=== PATIENT | female | born 1935 | race Caucasian/White ===

== ENCOUNTER 2018-04-06 19:55 | Emergency (ER) | payer OTHER ==
[~2018-04-06] VITALS: Ht 162.6 cm; Wt 76.7 kg
[~2018-04-06 19:55] MED LIST: AMARYL2 MG PO; ECOTRIN325 MG PO; LIPITOR80 MG PO; METFORMIN HCL1000 MG PO; METOPROLOL TART50 MG PO; ZESTRIL20 MG PO
[2018-04-06] MEDS ORDERED: INSULIN REGULAR, HUMAN 100 UNIT/1 ML 3ML VIAL SQ ONE (20:15)
[2018-04-06] MEDS ORDERED: SODIUM CHLORIDE 0.9% 1000ML 1,000 ML IV ONE (20:15)
[2018-04-06 20:37] LABS: BASOPHILS # (AUTO) 0.1 (0.0-0.1); BASOPHILS % 0.4 % (0.0-1.0); EOSINOPHILS # (AUTO) 0.2 (0.0-0.4); EOSINOPHILS % 1.4 % (0.0-6.0); HEMATOCRIT 34.6 % (34.2-44.1); HEMOGLOBIN 12.3 g/dL (12.0-16.0); LYMPHOCYTES # (AUTO) 2.1 (1.0-3.2); LYMPHOCYTES % 14.3 % (18.0-39.1); MEAN CORPUSCULAR HEMOGLOBIN 30.7 pg (28-32); MEAN CORPUSCULAR HGB CONC 35.5 g/dL (31-35); MEAN CORPUSCULAR VOLUME 86.3 fL (81-99); MONOCYTES # (AUTO) 0.8 (0.2-0.8); MONOCYTES % 5.1 % (4.4-11.3); NEUTROPHILS # (AUTO) 11.5 (2.1-6.9); NEUTROPHILS % 78.5 % (38.7-80.0); PLATELET COUNT 295 x10e3/uL (140-360); RED BLOOD COUNT 4.01 x10e6/uL (3.6-5.1)
[2018-04-06 20:57] LABS: ALBUMIN/GLOBULIN RATIO 1.1 (0.8-2.0); ANION GAP 20.3 mmol/L (8-16); CALCIUM 9.6 mg/dL (8.4-10.2); CREATININE, SERUM 1.89 mg/dL (0.57-1.11); POTASSIUM 4.3 mmol/L (3.5-5.1)
[2018-04-06 21:05] LABS: CREATINE KINASE MB 1.4 ng/mL (0-5.0)
[2018-04-06] MEDS ORDERED: GLIMEPIRIDE4 MG PO (21:34)
[2018-04-06] MEDS ORDERED: ATORVASTATIN CA80 MG PO (21:34)
[2018-04-06] MEDS ORDERED: FENOFIBRATE160 MG PO (21:34)
[2018-04-06] MEDS ORDERED: LISINOPRIL20 MG PO (21:34)
--- NOTE | 2018-04-06 22:01 | Diagnostic Imaging Report ---
EXAMINATION: CHEST SINGLE (PORTABLE) INDICATION: Lightheaded COMPARISON: None FINDINGS: TUBES and LINES: None. LUNGS: Lungs are well inflated. Left upper lobe partially calcified nodule measuring 1.2 cm in diameter. There is no evidence of pneumonia or pulmonary edema. PLEURA: No pleural effusion or pneumothorax. HEART AND MEDIASTINUM: The cardiomediastinal silhouette is unremarkable. There are atherosclerotic calcifications within the aorta. BONES AND SOFT TISSUES: No acute osseous lesion. Soft tissues are unremarkable. UPPER ABDOMEN: No free air under the diaphragm. IMPRESSION: No acute thoracic abnormality. Signed by: Dr. Naresh Medellin M.D. on 04/06/2018 9:57 PM
[2018-04-06 23:47] LABS: BILIRUBIN,URINE NEGATIVE (NEGATIVE); CLARITY,URINE HAZY (CLEAR); COLOR,URINE YELLOW (YELLOW); KETONES,URINE NEGATIVE (NEGATIVE); LEUKOCYTE ESTERASE ,URINE 1+ (NEGATIVE); NITRITE,URINE NEGATIVE (NEGATIVE); PROTEIN,URINE DIPSTICK NEGATIVE (NEGATIVE); URINE UROBILINOGEN 0.2 mg/dL (0.2 - 1)
[2018-04-06 23:56] LABS: BACTERIA,URINE MODERATE /HPF; EPITHELIAL CELLS,URINE RARE /LPF
[2018-04-06 23:57] LABS: WBC,URINE (MAN) 21-50 /HPF (0-5)
[2018-04-07] MEDS ORDERED: CEFTRIAXONE SOD 1 GM VIAL IV ONE (00:15)
== END 2018-04-07 01:40 | disposition home or self-care (01) ==
LOC: ER 19:55
DX: R42 Dizziness and giddiness (principal); R53.1 Weakness; N30.90 Cystitis, unspecified without hematuria; I10 Essential (primary) hypertension; E11.9 Type 2 diabetes mellitus without complications; E78.00 Pure hypercholesterolemia, unspecified
CPT/HCPCS: 36415; 71045; 80053; 81001; 82550; 82553; 82948; 84484; 85025; 87086; 87186; 93005; 99284; J0696; J7030

== ENCOUNTER 2021-08-07 14:59 | Inpatient (IN) | payer OTHER ==
[~2021-08-07] VITALS: Ht 160 cm; Wt 61.7 kg
[~2021-08-07 14:59] MED LIST changes: +ATORVASTATIN CA80 MG PO; +FENOFIBRATE160 MG PO; +GLIMEPIRIDE4 MG PO; +LISINOPRIL20 MG PO
[2021-08-07] MEDS ORDERED: SODIUM CHLORIDE 0.9% 1000ML 1,000 ML IV STA (17:02)
[2021-08-07 17:26] LABS: BASOPHILS # (AUTO) 0.1 (0.0-0.1); BASOPHILS % 0.5 % (0.0-1.0); EOSINOPHILS # (AUTO) 0.1 (0.0-0.4); EOSINOPHILS % 0.8 % (0.0-6.0); HEMATOCRIT 29.7 % (34.2-44.1); HEMOGLOBIN 9.4 g/dL (12.0-16.0); LYMPHOCYTES # (AUTO) 1.9 (1.0-3.2); LYMPHOCYTES % 13.3 % (18.0-39.1); MEAN CORPUSCULAR HEMOGLOBIN 29.6 pg (28-32); MEAN CORPUSCULAR HGB CONC 31.6 g/dL (31-35); MEAN CORPUSCULAR VOLUME 93.4 fL (81-99); MONOCYTES # (AUTO) 0.6 (0.2-0.8); MONOCYTES % 4.5 % (4.4-11.3); NEUTROPHILS # (AUTO) 11.5 (2.1-6.9); NEUTROPHILS % 80.4 % (38.7-80.0); PLATELET COUNT 421 x10e3/uL (140-360); RED BLOOD COUNT 3.18 x10e6/uL (3.6-5.1); RED CELL DISTRIBUTION WIDTH 14.2 % (11.7-14.4)
[2021-08-07 17:38] LABS: ALBUMIN 2.6 g/dL (3.5-5.0); ALBUMIN/GLOBULIN RATIO 0.6 (0.8-2.0); ANION GAP 17.3 mmol/L (8-16); CALCIUM 8.7 mg/dL (8.4-10.2); CREATININE, SERUM 0.77 mg/dL (0.57-1.11); POTASSIUM 4.3 mmol/L (3.5-5.1)
[2021-08-07] MEDS: PIPERACILLIN/TAZOBACTAM 3.375 GM in SODIUM CHLORIDE 0.9% 50ML 50 ML IV SCH (17:41)
[2021-08-07] MEDS: ONDANSETRON HCL INJ 2MG/ML 2ML 2 MG/ML VIAL IV PRN (18:24)
[2021-08-07] MEDS: Morphine 4mg Syringe 4 MG/ML INJ IV PRN (18:24)
[2021-08-07 19:24] VITALS: BP 153/57
[2021-08-07 20:00] VITALS: BP 153/57
[2021-08-07 21:00] VITALS: BP 153/57
[2021-08-07] MEDS ORDERED: PLAVIX75 MG PO (21:13)
[2021-08-07] MEDS ORDERED: FEROSUL325 MG PO (21:13)
[2021-08-07] MEDS ORDERED: DRAMAMINE25 MG PO (21:13)
[2021-08-07] MEDS ORDERED: DRAMAMINE LESS25 MG PO (21:13)
[2021-08-07] MEDS ORDERED: ULTRAM 50MG50 MG PO (21:13)
[2021-08-08] VITALS: BP 153/75
[2021-08-08 04:00] VITALS: BP 151/56
[2021-08-08 05:26] LABS: BASOPHILS # (AUTO) 0.1 (0.0-0.1); BASOPHILS % 0.6 % (0.0-1.0); EOSINOPHILS # (AUTO) 0.3 (0.0-0.4); EOSINOPHILS % 3.4 % (0.0-6.0); HEMATOCRIT 25.3 % (34.2-44.1); HEMOGLOBIN 8.1 g/dL (12.0-16.0); LYMPHOCYTES # (AUTO) 2.3 (1.0-3.2); LYMPHOCYTES % 26.1 % (18.0-39.1); MEAN CORPUSCULAR HEMOGLOBIN 29.8 pg (28-32); MONOCYTES # (AUTO) 0.6 (0.2-0.8); MONOCYTES % 6.2 % (4.4-11.3); NEUTROPHILS # (AUTO) 5.6 (2.1-6.9); NEUTROPHILS % 63.3 % (38.7-80.0); PLATELET COUNT 318 x10e3/uL (140-360); RED BLOOD COUNT 2.72 x10e6/uL (3.6-5.1); RED CELL DISTRIBUTION WIDTH 14.1 % (11.7-14.4)
[2021-08-08] MEDS: PIPERACILLIN/TAZOBACTAM 3.375 GM in SODIUM CHLORIDE 0.9% 50ML 50 ML IV SCH ×4 (05:29→12:12)
[2021-08-08 05:51] LABS: ALBUMIN 2.1 g/dL (3.5-5.0); ALBUMIN/GLOBULIN RATIO 0.6 (0.8-2.0); ANION GAP 12.8 mmol/L (8-16); CALCIUM 8.4 mg/dL (8.4-10.2); CREATININE, SERUM 0.66 mg/dL (0.57-1.11); POTASSIUM 3.8 mmol/L (3.5-5.1)
[2021-08-08] MEDS: ONDANSETRON HCL INJ 2MG/ML 2ML 2 MG/ML VIAL IV PRN ×2 (07:49→12:13)
[2021-08-08] MEDS: Morphine 4mg Syringe 4 MG/ML INJ IV PRN ×2 (07:49→12:13)
[2021-08-08 08:01] VITALS: BP 153/75
[2021-08-08 08:05] VITALS: BP 153/75
[2021-08-08 11:58] VITALS: BP 133/64
[2021-08-08] MEDS ORDERED: Vancomycin IV 1 GM in SODIUM CHLORIDE 0.9% 250ML 250 ML IV SCH (14:00)
[2021-08-08 16:00] VITALS: BP 154/67
[2021-08-08] MEDS ORDERED: NYSTATIN 15 GM POWDER UD BTL TOP SCH (17:00)
[2021-08-09] MEDS ORDERED: BALSAM PERU/CASTOR OIL 60 GM OINT...G. TP SCH (09:00)
== END 2021-08-08 18:30 | disposition home or self-care (01) | DRG 565 ==
LOC: ER 17:02 → ERHOLD 17:26 → MED/SURG3 19:29
PROVIDERS: ADMIT Internal Medicine; ATTEND Internal Medicine
DX: T87.81 Dehiscence of amputation stump (principal); E11.52 Type 2 diabetes mellitus with diabetic peripheral angiopathy with gangrene; M31.9 Necrotizing vasculopathy, unspecified; I70.262 Atherosclerosis of native arteries of extremities with gangrene, left leg; T87.44 Infection of amputation stump, left lower extremity; Z79.899 Other long term (current) drug therapy; E78.00 Pure hypercholesterolemia, unspecified; Z87.891 Personal history of nicotine dependence; J44.9 Chronic obstructive pulmonary disease, unspecified; Z20.822 Contact with and (suspected) exposure to COVID-19; M85.80 Other specified disorders of bone density and structure, unspecified site; I70.292 Other atherosclerosis of native arteries of extremities, left leg
CPT/HCPCS: 36415; 80053; 82948; 83605; 85025; 87040; 87086; 93925; 94799; 99251; 99284; J2270; J2405; J2543; J3370; J7030; J7050; U0002

== ENCOUNTER 2022-08-09 20:43 | Emergency (ER) | payer MEDICARE ==
[~2022-08-09] VITALS: Ht 160 cm; Wt 61.7 kg
[~2022-08-09 20:43] MED LIST changes: +DRAMAMINE LESS25 MG PO; +DRAMAMINE25 MG PO; +FEROSUL325 MG PO; +PLAVIX75 MG PO; +ULTRAM 50MG50 MG PO
[2022-08-09 21:29] LABS: BASOPHILS # (AUTO) 0.1 (0.0-0.1); BASOPHILS % 0.5 % (0.0-1.0); EOSINOPHILS # (AUTO) 0.2 (0.0-0.4); EOSINOPHILS % 1.4 % (0.0-6.0); HEMATOCRIT 44.9 % (34.2-44.1); HEMOGLOBIN 14.7 g/dL (12.0-16.0); LYMPHOCYTES # (AUTO) 2.1 (1.0-3.2); LYMPHOCYTES % 17.1 % (18.0-39.1); MEAN CORPUSCULAR HEMOGLOBIN 31.3 pg (28-32); MEAN CORPUSCULAR HGB CONC 32.7 g/dL (31-35); MEAN CORPUSCULAR VOLUME 95.7 fL (81-99); MONOCYTES # (AUTO) 0.4 (0.2-0.8); MONOCYTES % 3.4 % (4.4-11.3); NEUTROPHILS # (AUTO) 9.4 (2.1-6.9); NEUTROPHILS % 77.2 % (38.7-80.0); PLATELET COUNT 263 x10e3/uL (140-360); RED BLOOD COUNT 4.69 x10e6/uL (3.6-5.1); RED CELL DISTRIBUTION WIDTH 12.4 % (11.7-14.4)
[2022-08-09] MEDS: ACETAMINOPHEN 325 MG TAB PO ONE (21:40)
[2022-08-09] MEDS: SODIUM CHLORIDE 0.9% 1000ML 1,000 ML IV ONE (21:40)
[2022-08-09 21:47] LABS: ANION GAP 17.9 mmol/L (8-16); CALCIUM 9.6 mg/dL (8.4-10.2); CREATININE, SERUM 0.92 mg/dL (0.57-1.11); POTASSIUM 3.9 mmol/L (3.5-5.1)
[2022-08-09 22:15] LABS: ALBUMIN 4.1 g/dL (3.5-5.0); ALBUMIN/GLOBULIN RATIO 1.1 (0.8-2.0)
[2022-08-09 22:28] LABS: CREATINE KINASE MB 2.6 ng/mL (0-5.0)
[2022-08-09 23:02] LABS: COLOR,URINE YELLOW (YELLOW); KETONES,URINE NEGATIVE (NEGATIVE); LEUKOCYTE ESTERASE ,URINE NEGATIVE (NEGATIVE); NITRITE,URINE NEGATIVE (NEGATIVE); PROTEIN,URINE DIPSTICK 2+ (NEGATIVE); URINE UROBILINOGEN 0.2 mg/dL (0.2 - 1)
[2022-08-09 23:06] LABS: BACTERIA,URINE MANY /HPF; EPITHELIAL CELLS,URINE FEW /LPF; RBC,URINE 21-50 /HPF (0-5)
[2022-08-09 23:07] LABS: CLARITY,URINE CLOUDY (CLEAR)
[2022-08-09] MEDS ORDERED: CEFDINIR300 MG PO (23:39)
[2022-08-09] MEDS ORDERED: ONDANSETRON ODT4 MG PO (23:39)
[2022-08-10 00:03] VITALS: BP 143/84
== END 2022-08-10 00:05 | disposition home or self-care (01) ==
LOC: ER 20:47
DX: R50.9 Fever, unspecified (principal); N39.0 Urinary tract infection, site not specified; R05.9 Cough, unspecified; R51.9 Headache, unspecified; Z20.822 Contact with and (suspected) exposure to COVID-19
CPT/HCPCS: 36415; 70450; 71045; 80053; 81001; 82550; 82553; 83605; 83880; 84484; 85025; 87040; 93005; 99284; J0696; J7030; U0002